=== PATIENT | female | born 2005 ===

== ENCOUNTER → 2024-12-07 12:19 | Outpatient (CLI) | payer OTHER, SELFPAY ==
--- NOTE | 2024-12-07 12:21 | DI.US.S_ITS ---
PROCEDURE: US OB <= 14 WEEKS FETUS INDICATIONS: DATES OUTSIDE/PRIOR DATING DATA: Last menstrual period (LMP): 09/13/2024. LMP-based estimated date of delivery (ILEANA): 06/21/2025. First dating scan (date and location): 12/07/2024. Estimated date of delivery (ILEANA) from first dating scan: 07/07/2025. TECHNIQUE: Real-time scanning was performed of the fetus and maternal pelvic organs, with image documentation. COMPARISON: None. FINDINGS: Intrauterine gestational sac present. Embryo: Present, measuring 2.8 cm, corresponding to 9 weeks 5 days. Heart rate: 171 beats per minute Maternal organs: Right ovary not visualized. Left ovary is unremarkable. IMPRESSION: Single living intrauterine at 9 weeks 5 days, ILEANA of 07/07/2025. This is discordant with clinical dating. We strive to produce accurate, complete, and clear reports of imaging services. To assist us in improving patient care, this report was composed using standard report templates and voice recognition software. Therefore, it may contain abnormal punctuation, insertions and/or omissions. Occasional wrong-word or sound-alike substitutions may occur. Though we review the report and make efforts to correct it, we do recommend that the report be read carefully in proper context to recognize any text inaccuracies. Dictated by: Arthur Nuñez M.D. on 12/07/2024 at 13:25 Approved by: Arthur Nuñez M.D. on 12/07/2024 at 13:26
== END ==
LOC: US 12:21
PROVIDERS: Referring Provider Family Medicine; Visit Provider Family Medicine
DX: Z34.81 Encounter for supervision of other normal pregnancy, first trimester (principal); Z3A.09 9 weeks gestation of pregnancy
CPT/HCPCS: 76801

== ENCOUNTER → 2025-10-08 14:26 | Outpatient (CLI) | payer OTHER, SELFPAY ==
[2025-10-08 15:25] LABS: Add Manual Diff / Slide Review NO; Hematocrit 37.9 % (36-46); Hemoglobin 12.8 g/dL (12.0-16.0); Lymphocytes Absolute Auto 1100 /uL (1100-4500); Mean Corpuscular HGB Conc 33.7 % (30-36); Mean Corpuscular Hemoglobin 28.3 PG (26-34); Mean Corpuscular Volume 83.8 fL (80-100); Platelet Count 360 X10^3/uL (150-400)
[2025-10-08 15:53] LABS: Blood Urea Nitrogen 8 mg/dL (7-17); Calcium 9.9 mg/dL (8.4-10.2); Carbon Dioxide 21 mmol/L (22-32); Chloride 102 mmol/L (98-107); Estimated Glomerular Filt Rate > 60 mL/min (>60); Glucose 88 mg/dL (70-99); HEMOLYSIS < 15 (0-50); Potassium 4.0 mmol/L (3.4-5.1); Sodium 135 mmol/L (137-145)
[2025-10-08 19:07] LABS: Appearance Urine UA CLOUDY; Bilirubin Urine UA NEGATIVE (NEGATIVE); Color Urine UA YELLOW; Glucose Urine UA NEGATIVE (Negative); Ketones Urine UA 3+ (NEGATIVE); Leukocyte Esterase Urine UA NEGATIVE (NEGATIVE); Nitrite Urine UA NEGATIVE (Negative); Occult Blood Urine UA NEGATIVE (Negative); Protein Urine UA TRACE (Negative); Specific Gravity Urine UA >=1.030 (1.000-1.035); Urobilinogen Urine UA 0.2 E.U./dL (0.2)
[2025-10-08 19:08] LABS: pH Urine UA 6.0 (4.5-8.0)
[2025-10-08 19:26] LABS: Culture Indicated Urine Cult Not Indicated
[2025-10-09 15:04] LABS: Hepatitis B Surface Antigen NEGATIVE s/c (NEGATIVE)
[2025-10-09 15:09] LABS: HIV 1 & 2 Ab/Ag 4th Gen Combo NEGATIVE (NEGATIVE); Hep C Virus Ab w/Reflex Quant NEGATIVE s/c (NEGATIVE)
== END ==
PROVIDERS: PCP Family Medicine; Referring Provider Family Medicine; Visit Provider Family Medicine
DX: O21.0 Mild hyperemesis gravidarum (principal); E87.6 Hypokalemia
CPT/HCPCS: 36415; 80048; 80055; 81003; 81015; 86787; 86803; 86850; 86900; 86901; 87086; 87389